=== PATIENT | female | born 1990 | race Hispanic/Latino ===

== ENCOUNTER 2018-07-02 12:46 | Emergency (ER) | payer OTHER ==
[2018-07-02 12:51] VITALS: RESP 16; TEMP 97.7
[2018-07-02] MEDS ORDERED: Sodium Chloride 0.9% 1,000 ML IV STA (13:53)
--- NOTE | 2018-07-02 14:09 | ED PDOC ---
HPI: Headache Time Seen by Provider: 07/02/18 13:46 Chief Complaint (Nursing): Headache Chief Complaint (Provider): Headache History Per: Patient History/Exam Limitations: no limitations Onset/Duration Of Symptoms: Days (Sunday) Additional Complaint(s): Pt. with migraine history states a migraine headache is present. Same as her usual. Is frontal. Not worst in her life. No neck pain. Has nausea and vomit with it, nonbloody. No chest pain, dyspnea. No cough, abd pain, diarrhea. No numbness, tingles, weakness. Took excedrin and her daily topimax. Past Medical History Reviewed: Nursing Documentation, Vital Signs Vital Signs: Last Vital Signs Temp 97.7 F 07/02/18 12:51 Pulse 89 07/02/18 12:51 Resp 16 07/02/18 12:51 BP 112/80 07/02/18 12:51 Pulse Ox 98 07/02/18 12:51 - Medical History PMH: Migraine - Surgical History Surgical History: No Surg Hx - Family History Family History: States: Unknown Family Hx - Home Medications Home Medications: Ambulatory Orders Medication Instructions Recorded Metoclopramide [Reglan] 10 mg PO BID PRN 4 Days tab 07/02/18 - Allergies Allergies/Adverse Reactions: Allergies Allergy/AdvReac Type Severity Reaction Status Date / Time No Known Allergies Allergy Verified 07/02/18 12:51 Review of Systems ROS Statement: Except As Marked, All Systems Reviewed And Found Negative Gastrointestinal: Positive for: Nausea, Vomiting Neurological: Positive for: Headache Physical Exam - Reviewed Nursing Documentation Reviewed: Yes Vital Signs Reviewed: Yes - Physical Exam Appears: Positive for: Non-toxic, No Acute Distress Head Exam: Positive for: ATRAUMATIC, NORMAL INSPECTION, NORMOCEPHALIC Skin: Positive for: Normal Color, Warm, DRY Eye Exam: Positive for: EOMI, Normal appearance, PERRL ENT: Positive for: Normal ENT Inspection Neck: Positive for: Normal, Painless ROM, Supple Cardiovascular/Chest: Positive for: Regular Rate, Rhythm Respiratory: Positive for: CNT, Normal Breath Sounds Gastrointestinal/Abdominal: Positive for: Normal Exam, Soft. Negative for: Tenderness Back: Positive for: Normal Inspection. Negative for: L CVA Tenderness, R CVA Tenderness Extremity: Positive for: Normal ROM. Negative for: Tenderness Neurologic/Psych: Positive for: Alert, air conditioning unit assembler II-XII, Oriented. Negative for: Motor/Sensory Deficits, Aphasia, Facial Droop - ECG O2 Sat by Pulse Oximetry: 98 Pulse Ox Interpretation: Normal - Progress ED Course And Treament: 1524: Stable. AAOx3. Pain free. Tolerated PO. Wanted toradol prior to dc as it worked in the past. Ambulated with no issues. Disposition - Clinical Impression Clinical Impression: Migraine - Patient ED Disposition Is Patient to be Admitted: No Counseled Patient/Family Regarding: Diagnosis, Need For Followup, Rx Given - Disposition Referrals: [facility] [Outside] - 07/03/18 Disposition: Routine/Home Disposition Time: 15:26 Condition: STABLE Additional Instructions: Return if not better in 3 days. Prescriptions: Metoclopramide [Reglan] 10 mg PO BID PRN 4 Days tab PRN Reason: Headache Instructions: Migraine Headaches in Adults Forms: [employer] [facility] (Ind[place]ian), [facility] ED School/Work Excuse
[2018-07-02 16:42] VITALS: BP 118/76; PULSE 82; O2SAT 100
== END 2018-07-02 16:42 | disposition home or self-care (01) ==
LOC: H.ER 12:46
DX: G43.909 Migraine, unspecified, not intractable, without status migrainosus (principal)
CPT/HCPCS: 81025; 96374; 99285; J1885; J2765; J7030